=== PATIENT | male | born 1990 | race Hispanic/Latino ===

== ENCOUNTER 2021-05-19 20:40 | Emergency (ER) | payer BC ==
[~2021-05-19] VITALS: Ht 177.8 cm; Wt 74.8 kg
[2021-05-19] MEDS ORDERED: HYDROXYZINE 25 MG TABLET PO ONE (21:00)
[2021-05-19 21:13] VITALS: BP 121/88
[2021-05-19] MEDS ORDERED: HYDR-3421 PO (21:37)
== END 2021-05-19 21:50 | disposition home or self-care (01) ==
LOC: EDH 20:40
DX: F41.9 Anxiety disorder, unspecified (principal); R06.4 Hyperventilation; R42 Dizziness and giddiness